=== PATIENT | female | born 1960 | race Caucasian/White ===

== ENCOUNTER 2017-07-06 17:05 | Emergency (ER) | payer OTHER ==
[~2017-07-06] VITALS: Ht 157.5 cm; Wt 79.0 kg
[2017-07-06 17:09] VITALS: Ht 157.5 cm; Wt 79.0 kg
[2017-07-06] MEDS ORDERED: TETRACAINE 0.5% 4 ML OPH BOTH EYES ONE (19:30)
[2017-07-06] MEDS ORDERED: ERYT1OIN6 OP (19:49)
[2017-07-06] MEDS ORDERED: ACET500C5 PO (19:50)
--- NOTE | 2017-07-06 19:55 | ERD ---
ER Documentation Chief Complaint Chief Complaint BILAT EYE REDNESS WITH YELLOWISH DISCHARGE X 4 DAYS, DENIES CHEMICAL EXPOSE HPI This is a -year-old female who presents emergency department today complaining of bilateral eye pain, redness and drainage from both eyes for the past 4 days. States that she went to her primary care doctor 3 days ago and was given Polytrim but it is not helping. Denies any blurred vision, vision changes or loss of vision, headache. Not taking any medication for the pain. She uses eyeglasses but not contacts. Denies any fevers or chills. ROS All systems reviewed and are negative except as per history of present illness. Medications Home Meds Active Scripts Acetaminophen* (Tylophen*) 500 Mg Capsule, 1 CAP PO Q6H Y for PAIN AND OR ELEVATED TEMP, #30 CAP Prov:SAMMY NORMAN PA-C 07/06/17 Erythromycin Base (Erythromycin) 1 Gm Oint...g., 1 GM OP QID for 7 Days Prov:SAMMY NORMAN PA-C 07/06/17 Allergies Allergies: Coded Allergies: No Known Allergy (Unverified , 07/06/17) PMhx/Soc History of Surgery: No Anesthesia Reaction: No Hx Neurological Disorder: No Hx Respiratory Disorders: No Hx Cardiac Disorders: Yes (HTN) Hx Psychiatric Problems: No Hx Miscellaneous Medical Probl: Yes (Tyroid ) Hx Alcohol Use: No Hx Substance Use: No Hx Tobacco Use: No Smoking Status: Never smoker Physical Exam Vitals Vital Signs Date Time Temp Pulse Resp B/P Pulse Ox O2 Delivery O2 Flow Rate FiO2 07/06/17 17:09 98.7 85 18 154/91 97 Physical Exam Const: NAD Head: Atraumatic Eyes: No conjunctival erythema with purulent drainage and eyelash matting. PERRLA. EOM intact. ENT: Normal External Ears, Nose and Mouth. Neck: Full range of motion..~ No meningismus. Resp: Clear to auscultation bilaterally Cardio: Regular rate and rhythm, no murmurs Skin: No petechiae or rashes Neur: Awake and alert Psych: Normal Mood and Affect Results 24 hrs Current Medications Medications (Trade) Dose Ordered Sig/Ko Route PRN Reason Start Time Stop Time Status Last Admin Dose Admin Tetracaine HCl (Tetracaine 0.5% Steri-Unit Dea) 1 drop ONCE ONCE BOTH EYES 07/06/17 19:30 07/06/17 19:31 DC Procedures/MDM This is a 57-year-old female who presents to the emergency department today complaining of bilateral eye pain, redness and drainage for the past 4 days. Visual acuity left eye 20/40 Right eye 20/40 Bilateral 20/40 I did check the patient's eye pressures right eye 19, 20 Left eye 14, 16 Symptoms at this time is consistent with bacterial conjunctivitis. Low suspicion for acute narrow angle glaucoma, globe rupture, hyphema, foreign body , retinal detachment. Given a new prescription for erythromycin and instructed to stop taking the Polytrim. I have instructed her that she needs a follow-up with her eye doctor tomorrow in the morning. I also gave her referral information for [facility]. At this time the patient is stable for discharge and outpatient management. Patient should follow up with their PCP in the next 1-2 days. They may return to the emergency department sooner for any persistent or worsening of symptoms. Patient understood and agreed with the plan. Departure Diagnosis: Primary Impression: Eye problem Condition: Fair Patient Instructions: Conjunctivitis, Bacterial Referrals: your eye doctor [facility] Usted se lynch hecho un examen mdico de control que le indica que no est en janae condicin que requiera tratamiento urgente en el Departamento de Emergencia. Un estudio ms profundo y el tratamiento de orozco condicin pueden esperar sin ningn riesgo hasta que usted sea atendida/o en el consultorio de orozco mdico o janae cl luda. Es responsabilidad suya arreglar janae denia para el seguimiento del angelita. MANEJO DE CONDICIONES NO URGENTES EN EL FUTURO 1) Si usted tiene un mdico de atencin primaria: ted debera llamar a orozco mdico de atencin primaria antes de venir al departamento de emergencia. Despus de las horas de consultorio, orozco doctor o orozco asociado/a est disponible por telfono. El mdico o enfermero de arya en el servicio telefnico puede asesorarle por felix medio para atender el problema, o angelita contrario se puede programar janae denia. 2) Si usted no tiene un mdico de atencin primaria: Llame al mdico o clnica de referencia que aparece abajo leatha las horas de consultorio para hacer janae denia para que le vean. CLINICAS: [facility] [phone] [facility] [phone] [facility] [phone] [place] [phone] [place] [id number] [phone] [facility] [phone] [address] [employer] [facility] [employer] [facility] [facility] Hours: Mon - Fri 9:00 AM - 5:00 PM Additional Instructions: Llame al doctor MAANA y bhupendra janae DENIA PARA DENTRO DE 1-2 TIMMONS.Dgale a la secretaria que nosotros le instruimos hacer esta denia.Avise o llame si orozco condicin se empeora antes de la denia. Regresa aqui si peor o no mejor. Make an appointment at your eye doctor or go to [facility]. Take new antibiotics as prescribed and stop taking old antibiotic Take Tylenol or Motrin for pain SAMMY NORMAN PA-C Jul 06, 2017 19:55
== END 2017-07-06 20:00 | disposition home or self-care (01) ==
LOC: FTE 17:05
DX: H57.8 Other specified disorders of eye and adnexa (principal); I10 Essential (primary) hypertension
CPT/HCPCS: Z7502; Z7610; 99283